=== PATIENT | female | born 1995 | race Caucasian/White ===

== ENCOUNTER 2017-05-01 23:11 | Emergency (ER) | payer BC, OTHER ==
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
== END 2017-05-02 00:24 | disposition disaster alternative care site (69) ==
LOC: GACC 23:11
DX: S50.11XA Contusion of right forearm, initial encounter (principal); S40.011A Contusion of right shoulder, initial encounter; S90.32XA Contusion of left foot, initial encounter; Z98.890 Other specified postprocedural states; V47.6XXA Car passenger injured in collision with fixed or stationary object in traffic accident, initial encounter; W22.12XA Striking against or struck by front passenger side automobile airbag, initial encounter; Y92.410 Unspecified street and highway as the place of occurrence of the external cause